=== PATIENT | male | born 1995 | race Caucasian/White ===

== ENCOUNTER 2019-05-21 17:18 | Emergency (ER) | payer BC ==
[~2019-05-21] VITALS: Ht 177.8 cm; Wt 85.3 kg
[2019-05-21] MEDS ORDERED: CefTRIAXone 2gm/D5W 50ml 50 ML IV ONE (18:00)
[2019-05-21] MEDS ORDERED: vancomycin/NS 1 GM ADD-VANTAGE 250 ML IV ONE (18:00)
[2019-05-21] MEDS ORDERED: SULF1TAB49 PO (18:57)
[2019-05-21] MEDS ORDERED: CEPH-572 PO (18:57)
[2019-05-21 19:08] LABS: BASOPHILS # (AUTO) 0.1 X10'3 (0-0.2); BASOPHILS % (AUTO) 0.9 % (0-1); EOSINOPHILS # (AUTO) 0.5 X10'3 (0-0.9); HEMOGLOBIN 14.8 g/dl (14.0-17.9); LYMPHOCYTES % (AUTO) 29.8 % (21-51); MEAN CORPUSCULAR HEMOGLOBIN 31.6 PG (27.0-31.0); MEAN CORPUSCULAR HGB CONC 34.4 g/dL (33.0-36.5); MEAN CORPUSCULAR VOLUME 91.9 FL (78-98); MEAN PLATELET VOLUME 8.7 FL (7.4-10.4); MONOCYTES # (AUTO) 0.8 X10'3 (0-0.9); MONOCYTES % (AUTO) 8.2 % (2-12); NEUTROPHILS # (AUTO) 5.7 X10'3 (1.8-7.7); NEUTROPHILS % (AUTO) 56.1 % (42-75); PLATELET COUNT 268 X10'3 (140-440); RED BLOOD COUNT 4.68 X10'6 (4.70-6.10); RED CELL DISTRIBUTION WIDTH 12.8 % (11.5-14.5); WHITE BLOOD COUNT 10.1 X10'3 (4.5-11.0)
[2019-05-21 19:35] LABS: ALANINE AMINOTRANSFERASE 26 U/L (12-78); ALBUMIN 4.7 G/DL (3.4-5.0); ALBUMIN/GLOBULIN RATIO 1.6 (1.1-1.5); ALKALINE PHOSPHATASE 68 IU/L (46-116); ANION GAP 8 (8-16); ASPARTATE AMINO TRANSFERASE 21 U/L (10-37); BILIRUBIN,TOTAL 0.4 MG/DL (0.1-1.0); BLOOD UREA NITROGEN 10 MG/DL (7-18); BUN/CREATININE RATIO 10.2 (5.4-32.0); CALCIUM 9.9 MG/DL (8.5-10.1); CHLORIDE 106 MMOL/L (99-107); CREATININE 0.98 MG/DL (0.60-1.10); GLUCOSE 91 MG/DL (70-104); MAGNESIUM 2.1 MG/DL (1.5-2.4); POTASSIUM 4.5 MMOL/L (3.5-5.1); SODIUM 145 MMOL/L (135-145); TOTAL CARBON DIOXIDE 31.2 MMOL/L (24-32); TOTAL PROTEIN 7.6 G/DL (6.4-8.2); eGFR > 90 ML/MIN
[2019-05-21 19:57] VITALS: BP 120/61
== END 2019-05-21 21:00 | disposition home or self-care (01) ==
LOC: ER 17:19
DX: S30.811A Abrasion of abdominal wall, initial encounter (principal); L03.311 Cellulitis of abdominal wall; W22.8XXA Striking against or struck by other objects, initial encounter; Y93.H2 Activity, gardening and landscaping; Y92.89 Other specified places as the place of occurrence of the external cause; Y99.9 Unspecified external cause status
CPT/HCPCS: 36415; 80053; 83605; 83735; 84145; 85025; 87040; 96365; 96368; 99284; J0696; J3370

== ENCOUNTER 2019-05-25 16:47 | Emergency (ER) | payer BC ==
[~2019-05-25] VITALS: Ht 177.8 cm; Wt 82.0 kg
[~2019-05-25 16:47] MED LIST: CEPH-572 PO; SULF1TAB49 PO
[2019-05-25 17:35] VITALS: BP 145/65
--- NOTE | 2019-05-25 17:42 | NUR ---
PT EVALUATED BY MELISSA GUERRERO TO SEND TO FAST TRACK
[2019-05-25] MEDS ORDERED: PRED20TA PO (17:48)
[2019-05-25] MEDS ORDERED: CLOB15CR4 TOP (17:49)
== END 2019-05-25 18:02 | disposition home or self-care (01) ==
LOC: ER 16:48
DX: L23.7 Allergic contact dermatitis due to plants, except food (principal); Z79.2 Long term (current) use of antibiotics; Z79.899 Other long term (current) drug therapy
CPT/HCPCS: 99283